=== PATIENT | female | born 1955 | race Asian ===

== ENCOUNTER 2019-04-25 22:23 | Emergency (ER) | payer OTHER ==
[~2019-04-25] VITALS: Ht 162.6 cm; Wt 81.8 kg
[~2019-04-25 22:23] MED LIST: LISI10TA7 PO; METO50TA18 PO; SIMV20TA6 PO
[2019-04-25] MEDS ORDERED: ASPI-556 PO (22:45)
[2019-04-25] MEDS ORDERED: METO50 PO (22:45)
[2019-04-26] MEDS ORDERED: CloNIDine HCL 0.1 MG TABLET PO ONE (02:30)
[2019-04-26 04:19] VITALS: BP 144/91
== END 2019-04-26 05:02 | disposition home or self-care (01) ==
LOC: EMS 22:24
DX: R04.0 Epistaxis (principal); I10 Essential (primary) hypertension; E78.00 Pure hypercholesterolemia, unspecified; Z88.8 Allergy status to other drugs, medicaments and biological substances